=== PATIENT | female | born 1980 | race Caucasian/White ===

== ENCOUNTER 2022-05-03 22:56 | Emergency (ER) | payer OTHER ==
[2022-05-03 23:11] VITALS: BP 125/56; PULSE 87; RESP 20; TEMP 98.7; BMI 22.3
[2022-05-04] MEDS ORDERED: ACETAMINOPHEN 325 MG TABLET (FP) PO ONE (00:19)
[2022-05-04] MEDS ORDERED: ACETAMINOPHEN 325 MG TABLET (FP) ONE (00:24)
[2022-05-04] MEDS ORDERED: PROCHLORPERAZINE MALEATE 5 MG TABLET PO ONE (00:31)
[2022-05-04] MEDS ORDERED: PROCHLORPERAZINE MALEATE 5 MG TABLET ONE (00:38)
[2022-05-04 01:57] LABS: EPI CELLS 23 /uL (0-25.1); HYALINE CASTS 2 /uL (0-3.1); PH,URINE 5.5 (5.0-8.0); URINE APPEARANCE CLEAR; URINE BACTERIA 118 /uL (0-1359); URINE BILIRUBIN NEGATIVE (NEGATIVE); URINE COLOR YELLOW; URINE GLUCOSE (UA) NEGATIVE (NEGATIVE); URINE KETONE 2+ (NEGATIVE); URINE LEUK ESTERASE NEGATIVE (NEGATIVE); URINE NITRITE NEGATIVE (NEGATIVE); URINE PROTEIN TRACE (NEGATIVE); URINE RBC 177 /uL (0-23.9); URINE UROBILINOGEN 0.2 mg/dL (0.2-1.0); URINE WBC 18 /uL (0-25.8)
[2022-05-04] MEDS ORDERED: METOCLOPRAMIDE HCL 10 MG TABLET (FP) PO ONE ×2 (02:12→02:13)
[2022-05-04] MEDS ORDERED: METOCLOPRAMIDE HCL INJECTION 10 MG/2 ML VIAL IVPB ONE (02:29)
[2022-05-04] MEDS ORDERED: SODIUM CHLORIDE 0.9% 500 ML INFUS.BAG IV ONE (02:29)
[2022-05-04] MEDS ORDERED: KETOROLAC TROMETHAMINE 15 MG/ML VIAL IVPUSH ONE (02:30)
[2022-05-04] MEDS ORDERED: METOCLOPRAMIDE HCL INJECTION 10 MG/2 ML VIAL ONE (02:32)
[2022-05-04] MEDS ORDERED: KETOROLAC TROMETHAMINE 15 MG/ML VIAL ONE (02:40)
== END 2022-05-04 03:44 | disposition home or self-care (01) ==
LOC: JER 22:56
PROC: 3E0333Z Introduction of Anti-inflammatory into Peripheral Vein, Percutaneous Approach (ICD-10-PCS; principal; 2022-05-03)
PROC: 3E033GC Introduction of Other Therapeutic Substance into Peripheral Vein, Percutaneous Approach (ICD-10-PCS; 2022-05-03)
DX: R51.9 Headache, unspecified (principal); R05.1 Acute cough; J02.9 Acute pharyngitis, unspecified
CPT/HCPCS: 0241U-QW; 81003; 84703; 87086; 93005; 93010; 99284-25